=== PATIENT | female | born 1970 | race Caucasian/White ===

== ENCOUNTER → 2023-10-19 14:08 | Outpatient (REF) | payer OTHER, SELFPAY | LOC: WDC 14:08 | PROVIDERS: ATTENDING PHYSICIAN Obstetrics & Gynecology; FAMILY PHYSICIAN Internal Medicine | DX: N64.52 Nipple discharge (principal) | CPT/HCPCS: 76642 ==

== ENCOUNTER → 2024-06-14 17:05 | Outpatient (REF) | payer OTHER, SELFPAY | LOC: RAD 17:05 | PROVIDERS: ATTENDING PHYSICIAN Internal Medicine Rheumatology; FAMILY PHYSICIAN Nurse Practitioner | DX: M25.50 Pain in unspecified joint (principal); M54.50 Low back pain, unspecified | CPT/HCPCS: 72052; 72110 ==

== ENCOUNTER → 2024-08-24 17:38 | Outpatient (REF) | payer OTHER, SELFPAY | LOC: WDC 17:38 | PROVIDERS: ATTENDING PHYSICIAN Obstetrics & Gynecology; FAMILY PHYSICIAN Internal Medicine | DX: Z12.31 Encounter for screening mammogram for malignant neoplasm of breast (principal) | CPT/HCPCS: 77063; 77067 ==

== ENCOUNTER → 2025-07-23 13:42 | Outpatient (REF) | payer OTHER, SELFPAY | LOC: RAD 13:42 | PROVIDERS: ATTENDING PHYSICIAN Nurse Practitioner | DX: N20.0 Calculus of kidney (principal) | CPT/HCPCS: 76770 ==